=== PATIENT | female | born 1990 | race Caucasian/White ===

== ENCOUNTER 2016-10-05 23:38 | Emergency (ER) | payer MEDICAID ==
[2016-10-06 00:40] VITALS: BP 148/90
[2016-10-06 01:42] LABS: APPEARANCE,URINE SLIGHTLY-CLOUDY; BILIRUBIN,URINE NEGATIVE (NEGATIVE); GLUCOSE, URINE NEGATIVE (NEGATIVE); KETONES,URINE TRACE mg/dL (NEGATIVE); LEUKOCYTE ESTERASE,URINE TRACE (NEGATIVE); NITRITE,URINE NEGATIVE (NEGATIVE); PROTEIN,URINE NEGATIVE (NEGATIVE); URINE SPECIFIC GRAVITY 1.025
== END 2016-10-06 04:33 | disposition left against medical advice (07) ==
LOC: ER 23:38
DX: Z53.21 Procedure and treatment not carried out due to patient leaving prior to being seen by health care provider (principal)
CPT/HCPCS: 81001; 81025

== ENCOUNTER 2016-12-20 22:46 | Emergency (ER) | payer MEDICAID ==
--- NOTE | 2016-12-21 00:07 | RADIOLOGY REPORT (SQ) ---
EXAM DESCRIPTION: HAND RIGHT 3 VIEWS COMPLETED DATE/TIME: 12/20/2016 11:58 pm REASON FOR STUDY: injury COMPARISON: None. EXAM PARAMETERS: NUMBER OF VIEWS: Three views. TECHNIQUE: AP, lateral and oblique radiographic images acquired of the right hand. LIMITATIONS: None. FINDINGS: MINERALIZATION: Normal. BONES: No acute fracture or dislocation. No worrisome bone lesions. JOINTS: No effusions. SOFT TISSUES: Moderate volar soft tissue swelling. No radiopaque foreign body. OTHER: No other significant finding. IMPRESSION: Moderate volar soft tissue swelling. No fracture or radiopaque foreign body. TECHNICAL DOCUMENTATION: JOB ID: [id number] [employer]- All Rights Reserved
--- NOTE | 2016-12-21 00:48 | ER Document Report ---
ED Hand/Wrist Injury - General Chief Complaint: Hand Swelling Stated Complaint: WRIST SWELLING Time Seen by Provider: 12/20/16 23:43 Notes: patient is a 20 week 26 year old female who presents to the ED complaining of right hand pain and swelling. She states on sunday she was trying to set her kids pool up in the back yard, she states she had to go into their shed in order to get it. She remembers noticing a bug bite on sunday evening but does not recall seeing a bug bite her. She admits to swelling of her wrist and hand since Sunday, subjective fevers and chills. denies skin redness, foul drainage or odor. ROM intact, sensation intact. Pain locater over the base of the wrist. Denies any other trauma. Has not been taking anything for pain. She was seen by her OBGYN today who referred her to the ED for evaluation. TRAVEL OUTSIDE OF THE [place] IN LAST 30 DAYS: No - Related Data Allergies/Adverse Reactions: adhesive tape [Adhesive Tape] Allergy (Mild, Verified 10/06/16 00:56) rash hydrocodone bitartrate [From Vicodin] Allergy (Mild, Verified 10/06/16 00:56) Past Medical History - Social History Smoking Status: Current Every Day Smoker Chew tobacco use (# tins/day): No Frequency of alcohol use: None Drug Abuse: None - admits to h/o drug use, last use was 09/2016 Family History: None, Other - ibs, panic attacks, aneursyms Patient has suicidal ideation: No Patient has homicidal ideation: No Pulmonary Medical History: Denies: Hx Tuberculosis Renal/ Medical History: Reports: Hx Kidney Stones. Denies: Hx Peritoneal Dialysis GI Medical History: Reports: Hx Gastroesophageal Reflux Disease, Hx Irritable Bowel Psychiatric Medical History: Reports: Hx Anxiety - panic attacks, Hx Attention Deficit Hyperactivity Disorder, Hx Depression - Immunizations Immunizations up to date: Yes Hx Diphtheria, Pertussis, Tetanus Vaccination: No Review of Systems - Review of Systems Constitutional: See HPI EENT: No symptoms reported Cardiovascular: No symptoms reported Respiratory: No symptoms reported Musculoskeletal: Joint pain, Joint swelling Skin: See HPI -: Yes All other systems reviewed and negative Physical Exam - Vital signs Vitals: Temp Pulse Resp BP Pulse Ox 97.9 F 95 18 136/74 H 100 12/20/16 23:19 12/20/16 23:19 12/20/16 23:19 12/20/16 23:19 12/20/16 23:19 - Notes Notes: PHYSICAL EXAM GENERAL: Alert, interacts well. HEAD: Normocephalic, atraumatic. EYES: Pupils equal, round, and reactive to light. Extraocular movements intact. ENT: Oral mucosa moist, tongue midline. NECK: Full range of motion. Supple. Trachea midline. LUNGS: Clear to auscultation bilaterally, no wheezes, rales, or rhonchi. No respiratory distress. HEART: Regular rate and rhythm. No murmurs, gallops, or rubs. ABDOMEN: Soft, nondistended, nontender. No guarding, rebound, or rigidity.. Bowel sounds present in all 4 quadrants. EXTREMITIES: Moves all 4 extremities spontaneously.No radial and dorsalis pedis pulses 2/4 bilaterally. No cyanosis. Soft tissue swelling of the right upper extremity without erythema, induration. NO evidence of drainage NEUROLOGICAL: Alert and oriented x4. Normal speech. PSYCH: Normal affect, normal mood. SKIN: Warm, dry, normal turgor. No rashes or lesions noted. Course - Re-evaluation Re-evalutation: 12/21/16 06:04 Patient is a 26-year-old female who is hemodynamic stable, no acute distress and afebrile. Vital signs stable. Presentation today is consistent with cellulitis. Site marked. Patient initiated on antibiotics and instruction to follow-up with primary care in 3-5 days. Strict return precautions discussed patient agrees with plan. - Vital Signs Vital signs: Temp Pulse Resp BP Pulse Ox 97.9 F 74 17 125/79 98 12/20/16 23:19 12/21/16 02:58 12/21/16 02:58 12/21/16 02:58 12/21/16 02:58 - Laboratory Result Diagrams: 12/21/16 00:54 12/21/16 00:54 Laboratory results interpreted by me: 12/21/16 12/21/16 00:54 00:54 WBC 15.4 H RBC 3.53 L Hgb 10.9 L Hct 31.4 L Absolute Neutrophils 11.9 H Creatinine 0.46 L - Diagnostic Test Radiology reviewed: Image reviewed, Reports reviewed Discharge - Discharge Clinical Impression: Cellulitis Condition: Good Disposition: HOME, SELF-CARE Instructions: Cellulitis ([facility]), Cephalexin ([facility]) Prescriptions: Cephalexin Monohydrate [Keflex 500 mg Capsule] 500 mg PO QID 7 Days Referrals: ISAAK SLAUGHTER DO [Primary Care Provider] - Follow up in 3-5 days
[2016-12-21 01:23] LABS: ANION GAP 9 (5-19); BLOOD UREA NITROGEN 12 mg/dL (7-20); CALCIUM 9.1 mg/dL (8.4-10.2); CARBON DIOXIDE 25 mmol/L (22-30); CHLORIDE 103 mmol/L (98-107); CREATININE RESULT 0.46 mg/dL (0.52-1.25); GLUCOSE 89 mg/dL (75-110); POTASSIUM 4.2 mmol/L (3.6-5.0)
[2016-12-21] MEDS ORDERED: ACETAMINOPHEN 325 MG TABLET PO ONE (01:32)
[2016-12-21 01:47] LABS: HEMATOCRIT 31.4 % (36.0-47.0); HEMOGLOBIN 10.9 g/dL (12.0-15.5); HGB HCT DIFFERENCE 1.3; LYMPHOCYTES % (AUTO) 16.4 % (13-45); MEAN CORPUSCULAR HEMOGLOBIN 30.7 pg (27.0-33.4); MEAN CORPUSCULAR HGB CONC 34.5 g/dL (32.0-36.0); MEAN CORPUSCULAR VOLUME 89 fl (80-97); RED BLOOD COUNT 3.53 10^6/uL (3.72-5.28); RED CELL DISTRIBUTION WIDTH 13.9 % (11.5-14.0); SEGMENTED NEUTROPHILS % (AUTO) 77.1 % (42-78); WHITE BLOOD COUNT 15.4 10^3/uL (4.0-10.5)
[2016-12-21 01:48] LABS: ABSOLUTE BASOPHILS # (AUTO) 0.1 10^3/uL (0.0-0.2); ABSOLUTE EOSINOPHILS # (AUTO) 0.3 10^3/uL (0.0-0.6); ABSOLUTE LYMPHOCYTES (AUTO) 2.5 10^3/uL (0.5-4.7); ABSOLUTE MONOCYTES (AUTO) 0.6 10^3/uL (0.1-1.4); ABSOLUTE NEUT (AUTO) 11.9 10^3/uL (1.7-8.2); BASOPHILS % (AUTO) 0.4 % (0-2); EOSINOPHILS % (AUTO) 2.1 % (0-6)
[2016-12-21] MEDS ORDERED: CEPHALEXIN 500 MG CAPSULE PO ONE (02:26)
[2016-12-21 02:59] VITALS: BP 125/79
== END 2016-12-21 02:57 | disposition home or self-care (01) ==
LOC: ER 22:46
DX: L03.90 Cellulitis, unspecified (principal); M79.641 Pain in right hand; M25.439 Effusion, unspecified wrist; M79.89 Other specified soft tissue disorders; R68.83 Chills (without fever); F17.200 Nicotine dependence, unspecified, uncomplicated; Z88.5 Allergy status to narcotic agent
CPT/HCPCS: 99283; 36415; 87040; 85025; 80048; 73130; J3490

== ENCOUNTER 2017-04-26 23:15 | Inpatient (IN) | payer MEDICAID ==
[2017-04-27 00:10] LABS: APPEARANCE,URINE TURBID; BILIRUBIN,URINE NEGATIVE (NEGATIVE); GLUCOSE, URINE NEGATIVE (NEGATIVE); KETONES,URINE NEGATIVE (NEGATIVE); LEUKOCYTE ESTERASE,URINE TRACE (NEGATIVE); NITRITE,URINE NEGATIVE (NEGATIVE); PROTEIN,URINE 30 mg/dL (NEGATIVE); URINE SPECIFIC GRAVITY 1.023
[2017-04-27] MEDS ORDERED: PENICILLIN G POTASSIUM 5,000,000 UNIT in DEXTROSE 5%-WATER 100 ML IV ONE (00:17)
[2017-04-27] MEDS ORDERED: PENICILLIN G-K 5 MILLION UNIT VIAL ONE ×3 (00:19→08:32)
[2017-04-27 00:29] LABS: URINE BARBITURATES SCREEN NEGATIVE; URINE METHADONE SCREEN NEGATIVE; URINE OPIATES LOW NEGATIVE; URINE PHENCYCLIDINE SCREEN NEGATIVE
[2017-04-27 01:00] LABS: ABSOLUTE BASOPHILS # (AUTO) 0.1 10^3/uL (0.0-0.2); ABSOLUTE EOSINOPHILS # (AUTO) 0.2 10^3/uL (0.0-0.6); ABSOLUTE LYMPHOCYTES (AUTO) 2.3 10^3/uL (0.5-4.7); ABSOLUTE MONOCYTES (AUTO) 0.6 10^3/uL (0.1-1.4); ABSOLUTE NEUT (AUTO) 8.7 10^3/uL (1.7-8.2); BASOPHILS % (AUTO) 0.5 % (0-2); HEMATOCRIT 33.3 % (36.0-47.0); HEMOGLOBIN 11.7 g/dL (12.0-15.5); HGB HCT DIFFERENCE 1.8; LYMPHOCYTES % (AUTO) 19.1 % (13-45); MEAN CORPUSCULAR HEMOGLOBIN 30.6 pg (27.0-33.4); MEAN CORPUSCULAR HGB CONC 35.1 g/dL (32.0-36.0); MEAN CORPUSCULAR VOLUME 87 fl (80-97); MONOCYTES % (AUTO) 5.3 % (3-13); RED BLOOD COUNT 3.83 10^6/uL (3.72-5.28); RED CELL DISTRIBUTION WIDTH 13.9 % (11.5-14.0); SEGMENTED NEUTROPHILS % (AUTO) 73.1 % (42-78)
[2017-04-27] MEDS ORDERED: EPHEDRINE SULFATE INJ 50 MG/1 ML AMPULE ONE (01:02)
[2017-04-27] MEDS ORDERED: BUPIVACAINE HCL 0.25 % INJ/PF (2.5 MG/1 ML) 30 ML VIAL ONE (01:03)
[2017-04-27] MEDS ORDERED: FENTANYL/BUPIVACAINE/NS/PF 200 MCG/100 ML RTUINJ EPI ONE (01:03)
[2017-04-27] MEDS ORDERED: MAG HYDROX/AL HYDROX/SIMETH SUSP 30 ML UDCUP ONE (02:57)
[2017-04-27] MEDS ORDERED: MAG HYDROX/AL HYDROX/SIMETH SUSP 30 ML UDCUP PO ONE (03:01)
[2017-04-27] MEDS ORDERED: LIDOCAINE 1% INJ-PF (10 MG/ML) 30 ML SDV ONE (03:11)
[2017-04-27] MEDS ORDERED: OXYTOCIN/NORMAL SALINE 20 UNIT/1,000 ML RTUINJ ONE ×2 (03:12→06:56)
[2017-04-27] MEDS ORDERED: METHYLERGONOVINE MALEATE INJ/PF 0.2 MG/1 ML AMPULE ONE (03:12)
[2017-04-27] MEDS: PENICILLIN G POTASSIUM 2,500,000 UNIT in DEXTROSE 5%-WATER 50 ML IV SCH ×2 (04:27→04:30)
--- NOTE | 2017-04-27 06:53 | L&D Progress Notes ---
PROGRESS NOTES Datetime Report Generated by CPN: 04/27/2017 06:52 PROGRESS NOTE Impression: Normal Progression of Labor Procedures- Other: AROM at 0230 Plan: Continue Present Management; Augmentation Informed Consent Obtained: Vaginal Delivery; Risks, Benefits and Alternatives Discussed Informed Consent Obtained: Vaginal Delivery; Risks, Benefits and Alternatives Discussed Vital Signs : Reviewed; Within Normal Limits Comment: AROM with clear fluid at 0230. Rechk by RN now - no cervical change. Will begin pitocin. Plan for Jaja due to difficulty with tracing FHR. Anticpate . EFW 6# 12oz. Broken FHR tracing - RN to evaluate and place Jaja. Continue PCN for GBS prophy since GBS unknown. VAGINAL EXAM Dilatation: 5 Dilatation: 4 Effacement: 70 Effacement: 60 Station: -2 Station: -2 Contractions: q2 Contractions: q2 MEMBRANES Membranes: Ruptured Membranes: Intact Amniotic Fluid Color: Clear FETUS A FHR - Baseline: 120 Variability: Moderate 6-25bpm Accelerations: 15X15 Decelerations: None Estimated Weight (gm): 3068 Presentation: Vertex SIGNATURE SIGNATURE: [id number] Signature: with User ID: [email or web address]
[2017-04-27] MEDS ORDERED: MISOPROSTOL 0.2 MG TABLET ONE (06:56)
[2017-04-27] MEDS ORDERED: OXYTOCIN/NORMAL SALINE 20 UNIT/1,000 ML RTUINJ IV PRN ×2 (07:00→11:48)
[2017-04-27] MEDS ORDERED: SODIUM BICARBONATE 8.4% INJ 50 MEQ/50 ML DISP.SYRIN ONE (08:13)
[2017-04-27] MEDS ORDERED: LIDOCAINE 1.5%/EPINEPHRINE INJ-PF 30 ML SDV INJ PRN (08:31)
--- NOTE | 2017-04-27 10:13 | L&D Progress Notes ---
PROGRESS NOTES Datetime Report Generated by CPN: 04/27/2017 10:13 PROGRESS NOTE Impression: Reassuring Heart Rate Plan: Continue Present Management; Augmentation Vital Signs : Reviewed; Within Normal Limits Comment: Feeling pressure with uc's, Cat 1 strip, uc's q 2-3, family at BS, vs stable, anticipate FETUS A FHR - Baseline: 140 Variability: Marked >25bpm FETUS C SIGNATURE: [id number] Assignment: Lacey Santos MD Signature: with User ID: [email or web address] : with User ID: [email or web address]
[2017-04-27] MEDS ORDERED: MISOPROSTOL 0.2 MG TABLET PR PRN (11:48)
[2017-04-27] MEDS ORDERED: PROMETHAZINE HCL 25 MG SUPP.RECT PR PRN (11:48)
[2017-04-27] MEDS ORDERED: BENZOCAINE/MENTHOL AEROSOL SPRAY 56 ML TOP PRN (11:48)
[2017-04-27] MEDS ORDERED: PROMETHAZINE HCL 25 MG TABLET PO PRN (11:48)
[2017-04-27] MEDS ORDERED: MAGNESIUM HYDROXIDE SUSP 30 ML UDCUP PO PRN (11:48)
[2017-04-27] MEDS ORDERED: DIPHENHYDRAMINE HCL 25 MG CAPSULE PO PRN (11:48)
[2017-04-27] MEDS ORDERED: NA PHOS,M-B/NA PHOS,DI-BA (ADULT) 133 ML ENEMA PR PRN (11:48)
[2017-04-27] MEDS ORDERED: PSEUDOEPHEDRINE HCL 30 MG TABLET PO PRN (11:48)
[2017-04-27] MEDS ORDERED: DIPH/PERTUSS(ACELL)/TETANUS VAC/PF 0.5 ML SYR (>=10YO) IM PRN (11:48)
[2017-04-27] MEDS ORDERED: MEASLES,MUMPS&RUBELLA VACC/PF 0.5 ML VIAL SUBCUT PRN (11:48)
[2017-04-27] MEDS ORDERED: PROMETHAZINE HCL INJ 25 MG/1 ML VIAL IV PRN (11:48)
[2017-04-27] MEDS ORDERED: GLYCERIN/WITCH HAZEL LEAF 1 EACH MED..PAD TP PRN (11:48)
[2017-04-27] MEDS ORDERED: DIBUCAINE 1% OINTMENT 28 GM TP PRN (11:48)
[2017-04-27] MEDS ORDERED: ACETAMINOPHEN 650 MG SUPP.RECT PR PRN (11:48)
[2017-04-27] MEDS ORDERED: IBUPROFEN 800 MG TABLET ONE (12:00)
[2017-04-27] MEDS: IBUPROFEN 800 MG TABLET PO SCH ×2 (12:03→21:07)
--- NOTE | 2017-04-27 12:39 | Delivery Summary ---
Del Sum A-C Datetime Report Generated by CPN: 04/27/2017 12:39 DELIVERY PERSONNEL DELIVERY PERSONNEL: [id number] Delivery Doctor:: Carmen Gibbons CNM Labor and Delivery Nurse:: Ruby Ortiz RN Nursery Nurse:: Tristan Gibson RN Student Observers:: Sandro Tovar Tech/QUANTOMETER OPERATOR: Kayla Myles CNA II Additional Personnel: : BAlfonzo Roper MATERNAL INFORMATION Delivery Anesthesia: Epidural Medications After Delivery: Pitocin Bolus-Please Comment; Pitocin Drip 20 Units/1000ml NSS; Cytotec 600mcg Per Rectum/Vagina Meds After Delivery Comment: Pitocin bolusing per order cytotec given by Jason Gibbons CNM Estimated Blood Loss (ml): 300 Maternal Complications: None Provider Comments: viable female from OA to BAI over ML lac and rt labial lac, at time of delivery of vtx large clot passed, baby placed on abd, cord clamped and cut by FOB, cord blood obtained, delivery of grossly nl intact placenta, 3 vc, ebl 300cc, lacerations repaired without difficulty, FFFM, Pitocin infusing, cytotec 600mcg via rectum Baby and mom remain in recovery in stable condition (Annotations: Data stored by N on behalf of user) LABOR SUMMARY EDC: 05/09/2017 00:00 No. Babies in Womb: 1 Attempted: No Labor Anesthesia: Epidural LABOR INFORMATION Reason for Induction: Not Applicable Onset of Labor: 04/27/2017 02:30 Complete Dilatation: 04/27/2017 10:40 Oxytocin: Augmentation Group B Beta Strep: Unknown Antibiotics # of Doses: 3 Antibiotics Time of Last Dose: 0835 Name of Antibiotic Given: PCN Steroids Given: None Reason Steroids Not Administered: Not Applicable MEMBRANES Membranes Rupture Method: Artificial Rupture of Membranes: 04/27/2017 02:34 Length of Rupture (hr): 8.53 Amniotic Fluid Color: Clear Amniotic Fluid Amount: Moderate Amniotic Fluid Odor: Normal STAGES OF LABOR Stage 1 hr: 8 Stage 1 min: 10 Stage 2 hr: 0 Stage 2 min: 26 Stage 3 hr: 0 Stage 3 min: 6 Total Time in Labor hr: 8 Total Time in Labor min: 42 VAGINAL DELIVERY Episiotomy: None Laceration #1: Vaginal; Periurethral Laceration Extension #1: First Degree Other Laceration: Labial Laceration Repair: Yes Laceration Repair Note: 1st degree vaginal repaired with 2-0 chromic rt labial sutured with 2-0 vicryl Sponge Count Correct: N/A Sharps Count Correct: N/A CSECTION DELIVERY Primary Indication: N/A Secondary Indication: N/A CSection Incidence: N/A Labor: N/A Elective: N/A CSection Incision: N/A BABY A INFORMATION Infant Delivery Date/Time: 04/27/2017 11:06 Method of Delivery: Vaginal Born in Route : No : N/A Forceps: N/A Vacuum Extraction: N/A Shoulder Dystocia : No PRESENTATION/POSITION BABY A Presentation: Cephalic Cephalic Presentation: Vertex Vertex Position: Left Occipital Anterior Breech Presentation: N/A PLACENTA INFORMATION BABY A Placenta Delivery Time : 04/27/2017 11:12 Placenta Method of Delivery: Spontaneous Placenta Status: Delivered SCORES BABY A Heart Rate 1 min: >100 bpm Resp Effort 1 min: Good Cry Reflex Irritability 1 min: Cough or Sneeze or Pulls Away Muscle Tone 1 min: Active Motion Color 1 min: Body [place], Extremities Blue Resuscitation Effort 1 min: Tactile Stimulation SCORE 1 MIN: 9 Heart Rate 5 min: >100 bpm Resp Effort 5 min: Good Cry Reflex Irritability 5 min: Cough or Sneeze or Pulls Away Muscle Tone 5 min: Active Motion Color 5 min: Body [place], Extremities Blue Resuscitation Effort 5 min: Tactile Stimulation SCORE 5 MIN: 9 INFANT INFORMATION BABY A Gestational Age at Delivery: 38.2 Gestational Status: Early Term- 37- 38.6 Weeks Outcome : Liveborn Condition : Stable Sex: Female IDENTIFICATION BABY A Infant Verification Date/Time: 04/27/2017 11:20 ID Band Number: [id number] Mother's Name Verified: Yes RN Verifying Infant: A. Schuster RN CAlfonzo Stokes RN WEIGHT/LENGTH BABY A Infant Birthweight (gm): 2830 Weight (lb): 6 Weight (oz): 4 Infant Length (in): 19.00 Infant Length (cm): 48.26 CORD INFORMATION BABY A No. Cord Vessels: 3 Nuchal Cord : N/A Cord Blood Taken: Yes-For Eval (Mom's Blood Type - or O+) Infant Suction: None ASSESSMENT BABY A Infant Complications: None Skin to Skin: Yes Skin to Skin Time (min): 20 BABY B INFORMATION : N/A
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
[2017-04-27] MEDS: FERROUS SULFATE 325 MG TABLET PO SCH (18:39)
[2017-04-27] MEDS: ACETAMINOPHEN WITH CODEINE #3 TABLET PO PRN (18:40)
[2017-04-27] MEDS: DOCUSATE SODIUM 100 MG CAPSULE PO SCH (18:41)
[2017-04-27] MEDS: FAMOTIDINE 20 MG TABLET PO SCH (21:07)
[2017-04-28] MEDS: ACETAMINOPHEN WITH CODEINE #3 TABLET PO PRN ×6 (00:20→23:17)
[2017-04-28] MEDS: IBUPROFEN 800 MG TABLET PO SCH ×3 (05:51→22:09)
[2017-04-28 08:00] LABS: HEMATOCRIT 27.8 % (36.0-47.0); MEAN CORPUSCULAR HEMOGLOBIN 30.5 pg (27.0-33.4); MEAN CORPUSCULAR HGB CONC 34.5 g/dL (32.0-36.0); MEAN CORPUSCULAR VOLUME 88 fl (80-97); RED BLOOD COUNT 3.15 10^6/uL (3.72-5.28); RED CELL DISTRIBUTION WIDTH 14.1 % (11.5-14.0)
[2017-04-28 08:18] LABS: HEMOGLOBIN 9.6 g/dL (12.0-15.5)
--- NOTE | 2017-04-28 09:30 | PDOC PROGRESS REPORT ---
Subjective-OB Subjective: Post Delivery Day: 27 year old. Denies any needs at this time Doing well, OOB in halls and outside smoking, no c/o, scant bleeding, voiding, eating well Physical Exam (OB) Vital Signs: Temp Pulse Resp BP Pulse Ox 97.6 F 60 16 144/89 H 99 04/28/17 08:00 04/28/17 08:00 04/28/17 08:00 04/28/17 08:00 04/28/17 08:00 Intake & Output 04/27/17 04/28/17 04/29/17 06:59 06:59 06:59 Weight 61.55 kg - Lochia Lochia Amount: Small 10-25 ml Lochia Color: Rubra/Red - Abdomen Description: Soft Hernia Present: No Fundal Description: Firm, Midline Fundal Height: u/u - u/2 Objective-Diagnostic Laboratory: 04/28/17 07:43 04/28/17 07:43 WBC 14.0 H RBC 3.15 L Hgb 9.6 L D Hct 27.8 L MCV 88 MCH 30.5 MCHC 34.5 RDW 14.1 H Plt Count 150 Assessment and Plan(PN) - Assessment and Plan (1) Anemia associated with acute blood loss Is this a current diagnosis for this admission?: Yes (2) complicated by subutex maintenance, antepartum Is this a current diagnosis for this admission?: Yes (3) Normal vaginal delivery Is this a current diagnosis for this admission?: Yes - Time Spent with Patient Time with patient: Less than 15 minutes Medications reviewed and adjusted accordingly: Yes - Disposition Anticipated Discharge: Home Within: within 24 hours
[2017-04-28] MEDS: FERROUS SULFATE 325 MG TABLET PO SCH ×2 (09:31→17:49)
[2017-04-28] MEDS: PRENATAL VITAMIN W-O CA NO5/FE FUMARATE/FA CAPSULE PO SCH (09:32)
[2017-04-28] MEDS: SENNOSIDES/DOCUSATE 8.6-50 MG 1 EACH TABLET PO SCH (09:32)
[2017-04-28] MEDS: FAMOTIDINE 20 MG TABLET PO SCH ×2 (09:32→22:08)
[2017-04-28] MEDS: DOCUSATE SODIUM 100 MG CAPSULE PO SCH ×2 (09:32→17:49)
[2017-04-29] MEDS: IBUPROFEN 800 MG TABLET PO SCH ×2 (05:27→14:05)
[2017-04-29] MEDS: ACETAMINOPHEN WITH CODEINE #3 TABLET PO PRN ×3 (05:45→14:05)
--- NOTE | 2017-04-29 10:02 | PDOC PROGRESS REPORT ---
Subjective-OB Subjective: Post Delivery Day: 27 year old. Denies any needs at this time Doing well, no c/o, has been taking Tylenol # 3 since delivery, scant bleeding, FOB at BS, voiding Physical Exam (OB) Vital Signs: Temp Pulse Resp BP Pulse Ox 97.8 F 53 L 14 111/68 97 04/29/17 07:50 04/29/17 07:50 04/29/17 07:50 04/29/17 07:50 04/29/17 07:50 - PIH/Pre-Eclampsia DTR's: 2 + Clonus: Negative Headache: Absent Epigastric Pain: No Visual Changes: No - Lochia Lochia Amount: Scant < 10 ml Lochia Color: Rubra/Red - Abdomen Description: Tender, Soft Hernia Present: No Fundal Description: Firm, Midline Fundal Height: u/u - u/2 Objective-Diagnostic Laboratory: 04/28/17 07:43 Assessment and Plan(PN) - Assessment and Plan (1) Anemia associated with acute blood loss Is this a current diagnosis for this admission?: Yes (2) complicated by subutex maintenance, antepartum Is this a current diagnosis for this admission?: Yes (3) Normal vaginal delivery Is this a current diagnosis for this admission?: Yes - Time Spent with Patient Time with patient: Less than 15 minutes Medications reviewed and adjusted accordingly: Yes - Disposition Anticipated Discharge: Home Within: Other - home today RTC 2 weeks
[2017-04-29] MEDS: PRENATAL VITAMIN W-O CA NO5/FE FUMARATE/FA CAPSULE PO SCH (10:04)
[2017-04-29] MEDS: SENNOSIDES/DOCUSATE 8.6-50 MG 1 EACH TABLET PO SCH (10:04)
[2017-04-29] MEDS: FERROUS SULFATE 325 MG TABLET PO SCH (10:04)
[2017-04-29] MEDS: FAMOTIDINE 20 MG TABLET PO SCH (10:04)
[2017-04-29] MEDS: DOCUSATE SODIUM 100 MG CAPSULE PO SCH (10:04)
--- NOTE | 2017-04-29 10:25 | PDOC DISCHARGE SUMMARY ---
Final Diagnosis Discharge Date: 04/29/17 - Final Diagnosis (2) Anemia associated with acute blood loss Is this a current diagnosis for this admission?: Yes (3) complicated by subutex maintenance, antepartum Is this a current diagnosis for this admission?: Yes Discharge Data - Discharge Medication Home Medications: Buprenorphine HCl [Subutex 8 mg Sublingual Tablet] 8 mg PO BID 04/14/14 Pnv with Ca,No.72/Iron/FA [ Plus Multivitamin Tab] 1 tab PO DAILY Clonidine HCl 0.1 mg PO BID 04/26/17 Gestational Age: 38.2 Reason(s) for Admission: Onset of Labor Admission Note: On suboxone Procedures: NST, Ultrasound Intrapartum Procedure(s): Spontaneous Vaginal Delivery Complication(s): Laceration-Vaginal, Laceration-Labial Laceration-Degree: 1st - [place] Data Baby 1 Female at 1 minute: 9 at 5 minutes: 9 Weight: 2.835 kg Home with Mother: No Complications: Yes - withdrawal protocol - Diagnosis Test Laboratory: Temp Pulse Resp BP Pulse Ox 97.8 F 53 L 14 111/68 97 04/29/17 07:50 04/29/17 07:50 04/29/17 07:50 04/29/17 07:50 04/29/17 07:50 04/26/17 04/27/17 04/28/17 23:17 00:49 07:43 RBC 3.83 3.15 L Hgb 11.7 L 9.6 L D Hct 33.3 L 27.8 L Urine Opiates Screen NEGATIVE - Discharge information/Instructions Discharge Activity: Activity As Tolerated, No Lifting Over 10 Pounds, No Lifting /Push/Pulling, Pelvic Rest Discharge Diet: As Tolerated, Regular Disposition: HOME, SELF-CARE Follow up with: [facility] in: 4, Weeks
[2017-04-29] MEDS ORDERED: INFLUENZA ADLT QUAD (36MOS+) 2017-18 VAC 0.5 ML SYR IM PRN (10:40)
[2017-04-29 10:46] VITALS: BP 144/89
== END 2017-04-29 15:25 | disposition home or self-care (01) | DRG 775 ==
LOC: LC 23:15 → LR 04-27 00:15 → EEVIPCON 04-27 00:15 → 2S 04-27 13:24
PROVIDERS: ADMIT Student in an Organized Health Care Education/Training Program; ATTEND Student in an Organized Health Care Education/Training Program
PROC: 10E0XZZ Delivery of Products of Conception, External Approach (ICD-10-PCS; principal; 2017-04-27)
PROC: 0UQMXZZ Repair Vulva, External Approach (ICD-10-PCS; 2017-04-27)
PROC: 0HQ9XZZ Repair Perineum Skin, External Approach (ICD-10-PCS; 2017-04-27)
PROC: 4A1HXCZ Monitoring of Products of Conception, Cardiac Rate, External Approach (ICD-10-PCS; 2017-04-27)
PROC: 3E0234Z Introduction of Serum, Toxoid and Vaccine into Muscle, Percutaneous Approach (ICD-10-PCS; 2017-04-27)
PROC: 3E0234Z Introduction of Serum, Toxoid and Vaccine into Muscle, Percutaneous Approach (ICD-10-PCS; 2017-04-29)
DX: O99.324 Drug use complicating childbirth (principal); D62 Acute posthemorrhagic anemia; O99.334 Smoking (tobacco) complicating childbirth; O99.344 Other mental disorders complicating childbirth; F11.90 Opioid use, unspecified, uncomplicated; F41.9 Anxiety disorder, unspecified; O70.0 First degree perineal laceration during delivery; O99.02 Anemia complicating childbirth; Z79.891 Long term (current) use of opiate analgesic; O71.82 Other specified trauma to perineum and vulva; F17.210 Nicotine dependence, cigarettes, uncomplicated; Z3A.38 38 weeks gestation of pregnancy; Z37.0 Single live birth
CPT/HCPCS: 36415; 80307; 81005; 85025; 85027; 86592; 86850; 86870; 86900; 86901; 88307; 90686; 90715; G0480; J2210; J2540; J2590; J3490

== ENCOUNTER 2018-10-17 20:04 | Emergency (ER) | payer SELFPAY ==
[2018-10-17 20:40] VITALS: BP 128/95
[2018-10-17] MEDS ORDERED: CEPHALEXIN 500 MG CAPSULE PO ONE (22:12)
[2018-10-17] MEDS ORDERED: SULFAMETHOXAZOLE/TRIMETHOPRIM 800-160 MG TABLET PO ONE (22:12)
--- NOTE | 2018-10-17 22:20 | ER Document Report ---
ED General - General Chief Complaint: Wound Infection Stated Complaint: OPEN SORES Time Seen by Provider: 10/17/18 20:50 Primary Care Provider: ISAAK SLAUGHTER DO [Primary Care Provider] - Follow up as needed Notes: Patient is a 28-year-old female with a past medical history of polysubstance abuse, multiple psychiatric comorbidities, history of prior MRSA infections who presents with her electrical engineering drafting officer as she needed clearance [facility]. Staff stated that she needed to be examined due to multiple skin infection sites prior to being able to taken to the [facility]. The patient herself states that these areas have been present for multiple days or more. She states that she drained the one over her right antecubital fossa as well as over her left periscapular region with a razor blade on her own. She states the one on the dorsum of her left hand has been present for 2-3 days. States the area has a moderate to severe, throbbing, constant pain. Describes as being worsening in intensity since onset. History of very similar symptoms in the past with previous MRSA infections. Does not have a primary care doctor. Nothing seems to improve the discomfort, touching the area worsens the pain. TRAVEL OUTSIDE OF THE [place] IN LAST 30 DAYS: No - Related Data Allergies/Adverse Reactions: No Known Allergies Allergy (Verified 04/27/17 00:35) Past Medical History - General Information source: Patient - Social History Smoking Status: Current Every Day Smoker Chew tobacco use (# tins/day): No Frequency of alcohol use: None Drug Abuse: None Lives with: Friend Family History: Reviewed & Not Pertinent, Other - ibs, panic attacks, aneursyms Patient has suicidal ideation: No Patient has homicidal ideation: No Pulmonary Medical History: Denies: Hx Tuberculosis Renal/ Medical History: Reports: Hx Kidney Stones. Denies: Hx Peritoneal Dialysis GI Medical History: Reports: Hx Gastroesophageal Reflux Disease, Hx Irritable Bowel Psychiatric Medical History: Reports: Hx Anxiety - panic attacks, Hx Attention Deficit Hyperactivity Disorder, Hx Depression - Immunizations Immunizations up to date: Yes Hx Diphtheria, Pertussis, Tetanus Vaccination: No Review of Systems - Review of Systems Notes: Constitutional: Negative for fever. HENT: Negative for sore throat. Eyes: Negative for visual changes. Cardiovascular: Negative for chest pain. Respiratory: Negative for shortness of breath. Gastrointestinal: Negative for abdominal pain, vomiting or diarrhea. Genitourinary: Negative for dysuria. Musculoskeletal: Negative for back pain. Skin: Positive for rash. Neurological: Negative for headaches, weakness or numbness. 10 point ROS negative except as marked above and in HPI. Physical Exam - Vital signs Vitals: Temp Pulse Resp BP Pulse Ox 97.5 F 97 16 128/95 H 94 10/17/18 20:36 10/17/18 20:36 10/17/18 20:36 10/17/18 20:36 10/17/18 20:36 Interpretation: Normal Notes: PHYSICAL EXAMINATION: GENERAL: Well-appearing, well-nourished and in no acute distress. HEAD: Atraumatic, normocephalic. EYES: Pupils equal round and reactive to light, extraocular movements intact, sclera anicteric, conjunctiva are normal. ENT: nares patent, oropharynx clear without exudates. Moist mucous membranes. NECK: Normal range of motion, supple without lymphadenopathy LUNGS: Breath sounds clear to auscultation bilaterally and equal. No wheezes rales or rhonchi. HEART: Regular rate and rhythm without murmurs ABDOMEN: Soft, nontender, normoactive bowel sounds. No guarding, no rebound. No masses appreciated. EXTREMITIES: Normal range of motion, no pitting or edema. No cyanosis. NEUROLOGICAL: No focal neurological deficits. Moves all extremities spontaneously and on command. PSYCH: Normal mood, normal affect. SKIN: Warm, Dry, normal turgor, 1 x 1 cm abscess on the dorsum of the mid left hand. There is also a healing wound on the antecubital fossa on the right upper extremity. There is also a healing wound on the left periscapular region without surrounding erythema. Course - Re-evaluation Re-evalutation: 10/17/18 22:17 Patient presents with a 1 x 1 cm abscess on the dorsum of her left hand with surrounding cellulitis. She also has tube old abscesses that she drained by herself on her right acute fossa as well as her left shoulder. Both these areas are well healing and did not require repeat drainage. The abscess on her left dorsum was incised and drained without complication. She will be placed on trimethoprim sulfamethoxazole as well as cephalexin. She is here with a electrical engineering drafting officer [facility] At this time will discharge with return precautions and follow-up recommendations. Verbal discharge instructions given a the bedside and opportunity for questions given. Medication warnings reviewed. Patient is in agreement with this plan and has verbalized understanding of return precautions and the need for primary care follow-up in the next 24-72 hours. - Vital Signs Vital signs: Temp Pulse Resp BP Pulse Ox 97.5 F 97 16 128/95 H 94 10/17/18 20:36 10/17/18 20:36 10/17/18 20:36 10/17/18 20:36 10/17/18 20:36 Procedures - Incision and Drainage Left Hand Type: Simple Anesthetic type: 1% Lidocaine mL's of anesthetic: 2 Blade size: 11 I&D procedure: Betadine prep applied Incision Method: Incision made by scalpel Amount/type of drainage: 3 cc purulent drainage Discharge - Discharge Clinical Impression: Abscess of left hand, Cellulitis of left hand Condition: Good Disposition: HOME, SELF-CARE Additional Instructions: You were seen for an abscess that required drainage. Please clean this area with soap and water twice daily and apply a topical antibiotic. Dress the area after each cleaning. Please return if you develop fever, vomiting, the pain at the site worsens, you notice spreading redness from the area, or you have any other symptoms that are concerning to you. Prescriptions: Cephalexin Monohydrate [Keflex 500 mg Capsule] 500 mg PO Q6H 7 Days capsule Sulfamethoxazole/Trimethoprim [Bactrim Ds Tablet] 2 tab PO BID #28 tablet Referrals: ISAAK SLAUGHTER DO [Primary Care Provider] - Follow up as needed
== END 2018-10-17 22:25 | disposition home or self-care (01) ==
LOC: ER 20:04 → EEVIPCON 20:04 → ER 22:25
DX: L02.512 Cutaneous abscess of left hand (principal); L03.114 Cellulitis of left upper limb; F17.200 Nicotine dependence, unspecified, uncomplicated; Z87.442 Personal history of urinary calculi; Z86.14 Personal history of Methicillin resistant Staphylococcus aureus infection
CPT/HCPCS: 99283

== ENCOUNTER 2018-12-19 00:20 | Emergency (ER) | payer OTHER ==
[2018-12-19] MEDS ORDERED: KETOROLAC TROMETHAMINE INJ/PF 30 MG/1 ML SDV IV ONE (02:02)
--- NOTE | 2018-12-19 02:04 | ER Document Report ---
ED Medical Screen (RME) - General Chief Complaint: Facial Swelling Stated Complaint: FACIAL EDEMA Time Seen by Provider: 12/19/18 01:52 Primary Care Provider: ISAAK SLAUGHTER DO [Primary Care Provider] - Follow up as needed Notes: 28-year-old female chief complaint of right-sided facial swelling and pain. Symptoms started early in the day, progressively worsened over the day, symptoms worsened rapidly. Denies fever/chills. Reports history of both bad teeth and cellulitis when asked. No diagnosed history of diabetes. Denies any daily medications or medical problems. Patient is in custody with [facility]. TRAVEL OUTSIDE OF THE [place] IN LAST 30 DAYS: No - Related Data Allergies/Adverse Reactions: No Known Allergies Allergy (Verified 12/19/18 00:22) Past Medical History - Social History Chew tobacco use (# tins/day): No Frequency of alcohol use: None Drug Abuse: None Pulmonary Medical History: Denies: Hx Tuberculosis Renal/ Medical History: Reports: Hx Kidney Stones. Denies: Hx Peritoneal Dialysis GI Medical History: Reports: Hx Gastroesophageal Reflux Disease, Hx Irritable Bowel Psychiatric Medical History: Reports: Hx Anxiety - panic attacks, Hx Attention Deficit Hyperactivity Disorder, Hx Depression - Immunizations Immunizations up to date: Yes Hx Diphtheria, Pertussis, Tetanus Vaccination: No History of Influenza Vaccine for 04/2017 - 09/2017 Season: No Physical Exam - Skin Skin irregularity: other - Erythematous, warm, tender area over the right zygomatic area, extending up to the lower eyelid, and down towards the jaw. The medial central part is slightly indurated but there is no obvious fluctuance or abscess. Course - Re-evaluation Re-evalutation: Patient has poor dentition, however the examination is most consistent with a facial cellulitis. I have greeted and performed a rapid initial assessment of this patient. A comprehensive ED assessment and evaluation of the patient, analysis of test results and completion of the medical decision making process will be conducted by additional ED providers. Doctor's Discharge - Discharge Referrals: ISAAK SLAUGHTER DO [Primary Care Provider] - Follow up as needed
[2018-12-19] MEDS ORDERED: KETOROLAC TROMETHAMINE 60 MG/2 ML SDV IM ONE (02:31)
[2018-12-19 03:16] LABS: ABSOLUTE BASOPHILS # (AUTO) 0.1 10^3/uL (0.0-0.2); ABSOLUTE EOSINOPHILS # (AUTO) 0.1 10^3/uL (0.0-0.6); ABSOLUTE MONOCYTES (AUTO) 1.2 10^3/uL (0.1-1.4); ABSOLUTE NEUT (AUTO) 7.1 10^3/uL (1.7-8.2); BASOPHILS % (AUTO) 0.5 % (0-2); EOSINOPHILS % (AUTO) 0.8 % (0-6); HEMATOCRIT 40.6 % (36.0-47.0); HEMOGLOBIN 13.5 g/dL (12.0-15.5); LYMPHOCYTES % (AUTO) 31.9 % (13-45); MEAN CORPUSCULAR HEMOGLOBIN 30.9 pg (27.0-33.4); MEAN CORPUSCULAR HGB CONC 33.4 g/dL (32.0-36.0); MEAN CORPUSCULAR VOLUME 93 fl (80-97); MONOCYTES % (AUTO) 9.7 % (3-13); PLATELET COUNT 216 10^3/uL (150-450); RED BLOOD COUNT 4.39 10^6/uL (3.72-5.28); RED CELL DISTRIBUTION WIDTH 15.9 % (11.5-14.0); SEGMENTED NEUTROPHILS % (AUTO) 57.1 % (42-78); TOTAL CELLS COUNTED % (AUTO) 100 %; WHITE BLOOD COUNT 12.4 10^3/uL (4.0-10.5)
[2018-12-19 03:32] LABS: ANION GAP 10 (5-19); BLOOD UREA NITROGEN 13 mg/dL (7-20); CALCIUM 9.5 mg/dL (8.4-10.2); CARBON DIOXIDE 27 mmol/L (22-30); CHLORIDE 106 mmol/L (98-107); GLUCOSE 94 mg/dL (75-110); POTASSIUM 4.4 mmol/L (3.6-5.0); SODIUM 143.4 mmol/L (137-145)
[2018-12-19] MEDS ORDERED: DOXYCYCLINE HYCLATE 100 MG TABLET PO ONE (03:42)
[2018-12-19] MEDS ORDERED: ACETAMINOPHEN 325 MG TABLET PO ONE (03:43)
--- NOTE | 2018-12-19 04:26 | ER Document Report ---
ED General - General Chief Complaint: Facial Swelling Stated Complaint: FACIAL EDEMA Time Seen by Provider: 12/19/18 01:52 Primary Care Provider: ISAAK SLAUGHTER DO [Primary Care Provider] - Follow up as needed TRAVEL OUTSIDE OF THE [place] IN LAST 30 DAYS: No - HPI Notes: Patient is a 28-year-old female who presents to the emergency department for evaluation of facial pain and swelling. Started yesterday and got progressively worse. She does have some dental issues, chronic dental decay, but denies having any current dental pain. No fevers or chills. No visual changes. No nausea or vomiting. She is currently incarcerated. - Related Data Allergies/Adverse Reactions: No Known Allergies Allergy (Verified 12/19/18 00:22) Past Medical History - General Information source: Patient - Social History Smoking Status: Current Every Day Smoker Chew tobacco use (# tins/day): No Frequency of alcohol use: None Drug Abuse: None Family History: Reviewed & Not Pertinent, Other - ibs, panic attacks, aneursyms Patient has suicidal ideation: No Patient has homicidal ideation: No Pulmonary Medical History: Denies: Hx Tuberculosis Renal/ Medical History: Reports: Hx Kidney Stones. Denies: Hx Peritoneal Dialysis GI Medical History: Reports: Hx Gastroesophageal Reflux Disease, Hx Irritable Bowel Psychiatric Medical History: Reports: Hx Anxiety - panic attacks, Hx Attention Deficit Hyperactivity Disorder, Hx Depression - Immunizations Immunizations up to date: Yes Hx Diphtheria, Pertussis, Tetanus Vaccination: No Review of Systems - Review of Systems Constitutional: No symptoms reported EENT: See HPI Cardiovascular: No symptoms reported Gastrointestinal: No symptoms reported Genitourinary: No symptoms reported Musculoskeletal: No symptoms reported Skin: See HPI Neurological/Psychological: No symptoms reported Physical Exam - Notes Notes: 28-year-old female who appears her stated age in acute distress. Head is normocephalic and atraumatic. Pupils are equal and round, reactive to light. Patient has a moderate amount of facial swelling and erythema on the right cheek, the tracks just inferior to the right eye. I do not palpate any fluctuance. Oral mucosa is moist. She does have extensive dental decay, but no intraoral or gingival swelling is appreciated. No sublingual swelling. Patient does have some facial acne noted to the right chin. Heart is regular rate and rhythm, lungs are clear to auscultation bilaterally. Abdomen is soft and nontender with normoactive bowel sounds. Patient is awake and alert, neurological exam is nonfocal. Course - Re-evaluation Re-evalutation: 12/19/18 04:22 Patient presents to the emergency department for evaluation. She had initial laboratory investigations as placed through triage. She was feeling improved with the Toradol. Her findings to me are most consistent with facial cellulitis per she is given a dose of doxycycline here. I will send her home with a pre scription for same. She is also given Tylenol for continued pain. Although I do not believe that her current facial swelling is secondary to any dental cause, she is reminded that she should see a dentist for further care of her dental caries and decay. She is to return to the emergency department with worsening or new concerning symptoms of any sort. - Laboratory Result Diagrams: 12/19/18 02:56 12/19/18 02:56 Laboratory results interpreted by me: 12/19/18 02:56 WBC 12.4 H RDW 15.9 H Discharge - Discharge Clinical Impression: Facial cellulitis Condition: Stable Disposition: HOME, SELF-CARE Instructions: Cellulitis (OM) Additional Instructions: Take antibiotics as prescribed until gone. Tylenol or ibuprofen as needed for pain. Follow-up with your primary care provider next week. He should also see a dentist regarding your dental decay. Return to the emergency department with worsening or new concerning symptoms of any sort. Referrals: ISAAK SLAUGHTER DO [Primary Care Provider] - Follow up as needed
[2018-12-19 04:53] VITALS: BP 134/78
== END 2018-12-19 04:51 | disposition home or self-care (01) ==
LOC: ER 00:20
DX: L03.211 Cellulitis of face (principal); F17.200 Nicotine dependence, unspecified, uncomplicated; K02.9 Dental caries, unspecified; L70.9 Acne, unspecified
CPT/HCPCS: 99283; 96372; 36415; 84703; 85025; 80048; J1885